=== PATIENT | male | born 2000 | race Caucasian/White ===

== ENCOUNTER 2025-01-04 15:53 | Emergency (ER) | payer SELFPAY ==
[2025-01-04 16:10] VITALS: BP 117/77; PULSE 87; RESP 16; TEMP 36.8; O2SAT 100
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
[2025-01-04 19:22] VITALS: BP 113/70; PULSE 68; RESP 16; O2SAT 97
--- NOTE | 2025-01-07 07:41 | DCPLANNER ---
messaged wpfm for er f/u
== END 2025-01-04 19:10 | disposition home or self-care (01) ==
PROVIDERS: Emergency Provider Physician Assistant
DX: S39.012A Strain of muscle, fascia and tendon of lower back, initial encounter (principal); V89.2XXA Person injured in unspecified motor-vehicle accident, traffic, initial encounter
CPT/HCPCS: 72100; 99283

== ENCOUNTER 2025-01-08 08:53 | Emergency (ER) | payer SELFPAY ==
[2025-01-08 09:01] VITALS: BP 121/75; PULSE 77; RESP 17; TEMP 36.8; O2SAT 99; BMI 20.9
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
[2025-01-08] MEDS: ketorolac 60 mg/2 mL INJ IM (09:52)
[2025-01-08] MEDS: orphenadrine 30 mg/mL Inj 2 mL 60 MG IM (09:52)
[2025-01-08] MEDS: dexamethasone 10 mg/mL INJ 8 MG IM (09:52)
--- NOTE | 2025-01-08 09:53 | DCPLANNER ---
scheduled to establish care to PCP [facility] 01/12 @ 607.
== END 2025-01-08 10:29 | disposition home or self-care (01) ==
PROVIDERS: Emergency Provider Physician Assistant
DX: M54.50 Low back pain, unspecified (principal)
CPT/HCPCS: 96372; 99284; J1100; J1885; J2360

== ENCOUNTER → 2025-03-22 16:31 | Outpatient (BNVA) | payer SELFPAY | DX: Z76.89 Persons encountering health services in other specified circumstances (principal) | CPT/HCPCS: 80053; 83036; 85025 ==

== ENCOUNTER 2025-04-28 15:54 | Outpatient (CLI) | payer SELFPAY ==
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
--- NOTE | 2025-04-28 16:00 | MR_ITS ---
WS: [id number] MRI LUMBAR SPINE NONCONTRAST TECHNIQUE: Sagittal T1, T2 and STIR imaging. Axial T1 and T2 imaging. CLINICAL INFORMATION: lower back pain, chronic COMPARISON: None. FINDINGS: Mild lumbar curve. No acute compression. No high-grade central canal stenosis. Mild disc bulging T11-T12 with slight effacement of ventral thecal sac. L1-L2: Normal. L2-L3: Tiny LEFT proximal foraminal protrusion with mild LEFT foraminal narrowing. L3-L4: Mild facet arthropathy. Spinal canal and foramen are patent. L4-L5: Mild annular bulging. Slight effacement of the ventral thecal sac. Minimal narrowing RIGHT subarticular recess. Slight RIGHT foraminal narrowing. Mild facet arthropathy. L5-S1: Mild annular bulging with impingement RIGHT S1 nerve root. Mild facet arthropathy. Visualized pelvic bony structures: Normal. Paravertebral soft tissues: Normal. MR/MR lumbar spine wo con* [id number] IMPRESSION: 1. No acute compression fractures. 2. No high-grade central canal stenosis. 3. Mild disc bulging L5-S1 with slight impingement of the RIGHT subarticular r ecess and traversing RIGHT S1 nerve root. Recommend correlation RIGHT S1 nerve root symptoms. 4. Tiny LEFT proximal foraminal protrusion L2-3 with mild LEFT foraminal narro wing. 5. Mild annular bulging L4-5. Minimal RIGHT L4-5 foraminal narrowing. 6. Small central protrusions in the mid thoracic spine seen on the hat blocker imagi ng at T6-T8. This is more prominent at T7-8.
== END 2025-04-28 15:55 | disposition home or self-care (01) ==
LOC: RAD 15:57
DX: M47.816 Spondylosis without myelopathy or radiculopathy, lumbar region (principal); M25.571 Pain in right ankle and joints of right foot; M51.34 Other intervertebral disc degeneration, thoracic region; M51.369 Other intervertebral disc degeneration, lumbar region without mention of lumbar back pain or lower extremity pain
CPT/HCPCS: 72148; 73610

== ENCOUNTER 2025-04-28 23:18 | Inpatient (IN) | payer SELFPAY ==
[2025-04-28 23:26] VITALS: BP 127/97; PULSE 75; RESP 16; TEMP 36.7; O2SAT 100
--- NOTE | 2025-04-28 23:57 | ECG_ITS ---
[facility] Test Date: 2025-04-28 Pat Name: Claudio Dumont Department: Room: Gender: Male Collection Card Clerk: : 2000 Requested By: Alvino Paiz Order Number: [id number] Owusu MD: Bradley Barlow M.D. Measurements Intervals [place] Rate: 92 P: 80 IN: 153 QRS: 84 QRSD: 92 T: 53 QT: 326 QTc: 404 Interpretive Statements SINUS RHYTHM WITH MARKED SINUS ARRHYTHMIA No previous ECG available for comparison Electronically Signed On 04-29-2025 08:31:38 CDT by Bradley Barlow M.D. [email or web address]
--- NOTE | 2025-04-29 00:05 | ED.C_ITS ---
HPI - Psych 2 General: Chief Complaint: Psychiatric Symptoms Stated Complaint: wants to 72/96 self Time Seen by Provider: 04/28/25 23:46 History of Present Illness: 24 yo M with long-standing mental health concerns presents stating vivid thoughts of SI and HI over the past few days. Pt reports taking 4?5 muscle relaxers simultaneously several days ago, dose unknown, and denies any deleterious effects; pt is undecided whether this constituted a suicide attempt. Pt recently moved from [place] for a relationship; partner is a mandated bundle person who encouraged ED visit after pt disclosed thoughts. Pt endorses aggressive thoughts, anger issues, depression, and anxiety. Pt recalls prior psychiatric medications around age 20 but stopped due to perceived improvement or financial constraints. States he has had about ?13?14 attempts on my life.? Pt reports partner remains supportive. ROS otherwise not detailed. Triage notes state vitals stable. Related Data Previous Rx's ?Medication ?Instructions ?Recorded gabapentin 100 mg capsule 100 mg PO BID #60 caps 04/12 sertraline 50 mg tablet 50 mg PO DAILY #30 tabs 03/29 12/20 Allergies Allergy/AdvReac Type Severity Reaction Status Date / Time tree nut Allergy Unknown Unknown Verified 04/28/25 23:29 [facility] ED 2 [facility]: Family History (Updated 02/22/25 @ 15:31 by Kristen Ordoñez NP) Father Gout Mother Psychiatric illness Social History Smoking and tobacco/nicotine status: never used tobacco/nicotine Physical Exam 2 Const: COMMON NORMALS: no acute distress, patient oriented x3 and alert HENMT: COMMON NORMALS: normocephalic and atraumatic HEAD & SCALP: n ormocephalic and atraumatic Eye: COMMON NORMALS: Equal, round and reactive pupils present, EOMs intact bilaterally and no scleral icterus PUPIL: Yes Equal, round and reactive pupils present Resp: COMMON NORMALS: normal respiratory effort and No retractions Cardio: COMMON NORMALS: regular rate, regular rhythm and No murmurs present (Cardio) RATE: regular rate RHYTHM: regular rhythm GI: COMMON NORMALS: Normal to inspection, nondistended, normoactive bowel sounds present, Soft to palpation and non-tender PALPATION: Yes Soft to palpation Neuro: COMMON NORMALS: patient oriented x3 SENSORIUM/ORIENTATION: Yes alert Psych: OTHER: Admits depression, SI, HI, no active delusions or hallucinations. Skin: COMMON NORMALS: no rashes or lesions noted GENERAL SKIN EXAM: no rashes or lesions noted Course 2 Vital Signs: Vital signs: Vital Signs Temperature 97.8 F 04/29/25 02:07 Pulse Rate 86 04/29/25 02:07 Respiratory Rate 18 04/29/25 02:07 Blood Pressure 112/69 04/29/25 02:07 Pulse Oximetry 99 04/29/25 02:07 Oxygen Delivery Me thod Room Air 04/29/25 02:07 [facility] - Psych Medical Decision Making 24 yo M presents with several days of vivid SI and HI, recent ingestion of 4?5 muscle relaxers without reported effects, and longstanding depression/anxiety/anger issues. Reports prior psych meds stopped years ago and ~13?14 prior attempts on his life. Partner is supportive and urged evaluation. Vital signs stable. PE documented as normal. Mental status notable for SI and HI. Patient was medically cleared and placed on a 96-hour hold for suicidal and homicidal ideation. I spoke with on-call psychiatry who agrees he should be admitted. He will be taken to the Neuropsych Unit in stable condition Lab Data 04/29/25 00:15 04/29/25 00:15 Laboratory Results WBC 7.25 10^3/uL (3.29-11.43) 04/29/25 00:15 RBC 4.93 10^6/uL (3.85-5.65) 04/29/25 00:15 Hgb 13.80 g/dL (11.27-16.99) 04/29/25 00:15 Hct 41.4 % (37-53) 04/29/25 00:15 MCV 84.0 fl (82-101) 04/29/25 00:15 MCH 28.0 pg (27-33) 04/29/25 00:15 MCHC 33.3 g/dL (30-55) 04/29/25 00:15 RDW 12.5 % (12.1-15.1) 04/29/25 00:15 Plt Count 247 10^3/cmm (157-399) 04/29/25 00:15 MPV 9.6 fL (7.4-10.4) 04/29/25 00:15 Neut % (Auto) 49.6 % 04/29/25 00:15 Lymph % (Auto) 38.9 % 04/29/25 00:15 Cottle % (Auto) 8.7 % 04/29/25 00:15 Eos % (Auto) 2.3 % 04/29/25 00:15 Baso % (Auto) 0.4 % 04/29/25 00:15 Neut # (Auto) 3.59 10^3/uL (1.8-7.7) 04/29/25 00:15 Lymph # (Auto) 2.8 10^3/uL (0.8-4.8) 04/29/25 00:15 Cottle # (Auto) 0.6 10^3/uL (0.2-0.9) 04/29/25 00:15 Eos # (Auto) 0.2 10^3/uL (0.0-0.8) 04/29/25 00:15 Baso # (Auto) 0.0 10^3/uL (0.0-0.1) 04/29/25 00:15 Nucleated RBC % (auto) 0 % 04/29/25 00:15 Nucleated RBCs # 0.0 /100WBC 04/29/25 00:15 Sodium 140 mmol/L (136-145) 04/29/25 00:15 Potassium 3.4 mmol/L (3.5-5.1) L 04/29/25 00:15 Chloride 102 mmol/L (98-107) 04/29/25 00:15 Carbon Dioxide 21 mmol/L (22-29) L 04/29/25 00:15 Anion Gap 20.4 (5-19) H 04/29/25 00:15 BUN 16 mg/dL (6-20) 04/29/25 00:15 Creatinine 0.8 mg/dL (0.7-1.2) 04/29/25 00:15 GFR Calculation 117.8 mL/min (90-130) 04/29/25 00:15 Glucose 115 mg/dL (65-115) 04/29/25 00:15 Calculated Osmolality 292 mOsm/kg (285-295) 04/29/25 00:15 Calcium 9.2 mg/dL (8.5-10.5) 04/29/25 00:15 Total Bilirubin 0.3 mg/dL (0.15-1.2) 04/29/25 00:15 AST 20 U/L (0-40) 04/29/25 00:15 ALT 18 U/L (0-41) 04/29/25 00:15 Alkaline Phosphatase 65 U/L (40-130) 04/29/25 00:15 Total Protein 7.9 g/dL (6.6-8.7) 04/29/25 00:15 Albumin 4.9 g/dL (3.5-5.2) 04/29/25 00:15 Globulin 3.0 g/dL (1.3-4.6) 04/29/25 00:15 Salicylates < 0.3 mg/dL (3-10) L 04/29/25 00:15 Urine Opiates Screen Negative ng/mL (Negative) 04/29/25 00:12 Acetaminophen < 5.0 ug/mL (10-30) L 04/29/25 00:15 Ur Barbiturates Screen Negative ng/mL (Negative) 04/29/25 00:12 Ur Phencyclidine Scrn Negative ng/mL (Negative) 04/29/25 00:12 Ur Amphetamines Screen Negative ng/mL (Negative) 04/29/25 00:12 U Benzodiazepines Scrn Negative ng/mL (Negative) 04/29/25 00:12 Urine Cocaine Screen Negative ng/mL (Negative) 04/29/25 00:12 U Marijuana (THC) Screen Negative ng/mL (Negative) 04/29/25 00:12 No radiology studies performed this visit EKG Data EKG 1: Interpretation: Time?2356?sinus rhythm with marked sinus arrhythmia, rate of 92, no ST segment elevation or depression, no T wave inversions, QTc = 376 Discharge Plan Discharge Patient Disposition: Admitted As Inpatient Admit Provider: Jonn Ordoñez Clinical Impression: Depression with suicidal ideation, Homicidal ideation Condition: Stable Coding Level of Care Code ED Template Clerk for Henri Sherman
[2025-04-29 00:24] LABS: Hematocrit 41.4 % (37-53); Hemoglobin 13.80 g/dL (11.27-16.99); Mean Corpuscular HGB Conc 33.3 g/dL (30-55); Mean Corpuscular Hemoglobin 28.0 pg (27-33); Mean Corpuscular Volume 84.0 fl (82-101); Nucleated Red Blood Cells % 0 %; Platelet Count 247 10^3/cmm (157-399); Red Blood Count 4.93 10^6/uL (3.85-5.65); White Blood Count 7.25 10^3/uL (3.29-11.43)
[2025-04-29 00:28] LABS: PCP Screen Urine Negative (Negative)
[2025-04-29 00:43] LABS: Alanine Aminotransferase 18 U/L (0-41); Albumin Level 4.9 g/dL (3.5-5.2); Alkaline Phosphatase 65 U/L (40-130); Anion Gap 20.4 (5-19); Aspartate Amino Transferase 20 U/L (0-40); Blood Urea Nitrogen 16 mg/dL (6-20); Calcium 9.2 mg/dL (8.5-10.5); Carbon Dioxide 21 mmol/L (22-29); Chloride 102 mmol/L (98-107); Creatinine Clr Calc Pharmacy 126.7855; Globulin 3.0 g/dL (1.3-4.6); Glucose 115 mg/dL (65-115); Osmolality Calculated 292 mOsm/kg (285-295); Potassium 3.4 mmol/L (3.5-5.1); Sodium 140 mmol/L (136-145); Total Protein 7.9 g/dL (6.6-8.7)
[2025-04-29 00:49] LABS: Acetaminophen < 5.0 ug/mL (10-30); Salicylate < 0.3 mg/dL (3-10)
--- NOTE | 2025-04-29 01:52 | PC.NURSE ---
96 Hour Involuntary Hold Patient Rights have been reviewed with patient and a copy of the same has been provided to him. Anger Control Counselor Tavares Gill was present at bedside during the presentation of Rights.
--- NOTE | 2025-04-29 02:01 | PC.NURSE ---
Report called to Dominic in [facility]PU. All questions and concerns addressed at time of report.
[2025-04-29 02:07] VITALS: BP 112/69; PULSE 86; RESP 18; TEMP 36.6; O2SAT 99
[2025-04-29 03:26] LABS: Alcohol Level 123 mg/dL (0-10)
[2025-04-29 06:00] VITALS: BP 112/69; PULSE 86; RESP 18; TEMP 36.6; O2SAT 99
[2025-04-29 14:00] VITALS: BP 97/59; PULSE 87; RESP 16; TEMP 36.8; O2SAT 98
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
[2025-04-29 19:44] VITALS: BP 86/51; PULSE 75; RESP 18; TEMP 36.6; O2SAT 97
[2025-04-30 06:00] VITALS: BP 94/62; PULSE 62; RESP 17; TEMP 36.4; O2SAT 97
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
[2025-04-30 15:10] VITALS: BP 96/63; PULSE 64; RESP 16; TEMP 37.1; O2SAT 95
[2025-04-30 20:08] VITALS: BP 100/64; PULSE 96; RESP 19; TEMP 36.8; O2SAT 98
[2025-05-01 06:00] VITALS: BP 97/59; PULSE 92; RESP 16; TEMP 36.4; O2SAT 98
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
[2025-05-01 13:37] VITALS: BP 125/77; PULSE 93; RESP 17; O2SAT 97
[2025-05-01 20:02] VITALS: BP 120/80; PULSE 84; RESP 18; TEMP 36.4; O2SAT 97
[2025-05-02 06:00] VITALS: BP 101/62; PULSE 68; RESP 16; TEMP 37.1; O2SAT 99; BMI 19.2
[2025-05-02 13:12] VITALS: BP 105/69; PULSE 84; RESP 16; TEMP 36.6; O2SAT 98
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
[2025-05-02 20:57] VITALS: BP 106/74; PULSE 75; RESP 18; O2SAT 98
[2025-05-03 06:00] VITALS: RESP 14
--- NOTE | 2025-05-03 06:10 | PC.NURSE ---
vitals not done, pt had trouble sleeping, sleeping now, nurse aware, resp. 14
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
[2025-05-03 13:37] VITALS: BP 106/74; PULSE 75; RESP 18; O2SAT 98
[2025-05-03 14:00] VITALS: BP 113/80; PULSE 84; RESP 16; TEMP 36.6; O2SAT 97
== END 2025-05-03 16:00 | disposition home or self-care (01) | DRG 885 ==
LOC: ER 04-29 01:02 → NP 04-29 01:23
PROVIDERS: Admitting Provider Psychiatry & Neurology Psychiatry; Emergency Provider Student in an Organized Health Care Education/Training Program; Visit Provider Psychiatry & Neurology Psychiatry
DX: F33.2 Major depressive disorder, recurrent severe without psychotic features (principal); R45.851 Suicidal ideations; R45.850 Homicidal ideations; G89.29 Other chronic pain; F41.9 Anxiety disorder, unspecified; Z91.52 Personal history of nonsuicidal self-harm; Z81.3 Family history of other psychoactive substance abuse and dependence
CPT/HCPCS: 36415; 80053; 80306; 80307; 85025; 93005; 97150; 97165; 99285; J9999